=== PATIENT | male | born 1955 | race Caucasian/White ===

== ENCOUNTER → 2019-02-02 11:03 | Outpatient (CLI) | payer MEDICARE, OTHER, SELFPAY ==
--- NOTE | 2019-02-02 | DI.RAD.S_ITS ---
PROCEDURE: FL BARIUM SWALLOW INDICATIONS: Other dysphagia COMPARISON: None. FINDINGS: Function: There is mild esophageal dysmotility. No elicited gastroesophageal reflux. Morphology: Air-contrast images demonstrate normal mucosal morphology. Single contrast views show no esophageal strictures, extrinsic mass effects, or diverticula. Limited images of the stomach demonstrate normal appearance. IMPRESSION: Mild esophageal dysmotility Dictated by: Adria Mensah M.D. on 02/02/2019 at 14:05 Approved by: Adria Mensah M.D. on 02/02/2019 at 14:09
== END ==
PROVIDERS: PCP Family Medicine; Visit Provider Otolaryngology
DX: R13.19 Other dysphagia (principal); K22.4 Dyskinesia of esophagus
CPT/HCPCS: 74220

== ENCOUNTER → 2022-03-19 12:38 | Outpatient (CLI) | payer MEDICARE, OTHER, SELFPAY ==
--- NOTE | 2022-03-19 12:40 | DI.RAD.S_ITS ---
PROCEDURE: FL UPPER GI SERIES INDICATIONS: Nausea with vomiting, unspecified COMPARISON: None. FINDINGS: KUB: Preprocedural quality compliance consultant film demonstrates a normal bowel gas pattern. No suspicious abdominal calcifications. Visualized solid organ contours appear normal. Bony structures appear unremarkable. Surgical clips seen projecting over the right paraspinal region. Degenerative changes are seen in the spine. Esophagus: Esophageal mucosa is normal on air-contrast views. On single-contrast views, there is normal esophageal peristalsis. No strictures, extrinsic mass effects, or diverticula. No elicited gastroesophageal reflux. Small reducible hiatal hernia. There is normal transit of a calibrated barium tablet through the esophagus. Stomach: The stomach is normally distensible, with normal rugal fold thickness. No mucosal masses or ulcers. Pylorus and duodenal bulb appear normal in morphology. Duodenal folds are normal in thickness as well. IMPRESSION: Small reducible hiatal hernia. Upper GI study otherwise within normal limits. Dictated by: Levi Cartwright M.D. on 03/19/2022 at 15:33 Approved by: Levi Cartwright M.D. on 03/19/2022 at 15:37
== END ==
PROVIDERS: PCP Family Medicine; Referring Provider Physician Assistant; Visit Provider Physician Assistant
DX: R11.2 Nausea with vomiting, unspecified (principal); K44.9 Diaphragmatic hernia without obstruction or gangrene
CPT/HCPCS: 74240

== ENCOUNTER → 2022-03-29 07:39 | Outpatient (CLI) | payer MEDICARE, OTHER, SELFPAY ==
--- NOTE | 2022-03-29 | DI.NM.S_ITS ---
PROCEDURE: NM GASTRIC EMPTYING STUDY RADIOPHARMACEUTICAL: 1.1 mCi Tc-99m sulfur colloid in an egg sandwich. INDICATIONS: Nausea with vomiting, unspecified TECHNIQUE: A Tc-99m labeled sulfur colloid labeled egg sandwich or oatmeal was served to the patient. Anterior and posterior planar images of the abdomen were obtained at 0 minutes and 30 minutes, then at hourly intervals up to 4 hours. The patient was upright and ambulating during the interval. COMPARISON: None. FINDINGS: The stomach has normal size, morphology, and position. There is normal emptying of solid gastric contents from the stomach by visual inspection. No gastroesophageal reflux is visualized. The percentage of tracer retained at specific time points are as follows: Time point Percent gastric retention Normal range 30 minutes 66% 70% or more 1 hour 36% 30% to 90% 2 hours 15% 60% or less 3 hours 1% 30% or less IMPRESSION: Borderline rapid gastric emptying. No evidence of gastroparesis. Dictated by: Piotr Razo M.D. on 03/29/2022 at 14:29 Approved by: Piotr Razo M.D. on 03/29/2022 at 14:31
== END ==
PROVIDERS: PCP Family Medicine; Referring Provider Physician Assistant; Visit Provider Physician Assistant
DX: R11.2 Nausea with vomiting, unspecified (principal)
CPT/HCPCS: 78264; A9541

== ENCOUNTER → 2022-04-20 11:32 | Outpatient (CLI) | payer MEDICARE, OTHER, SELFPAY ==
[2022-04-20 13:00] LABS: COVID19 -Nasal RAPID Negative (Negative)
== END ==
PROVIDERS: PCP Family Medicine; Visit Provider Surgery
DX: Z20.822 Contact with and (suspected) exposure to COVID-19 (principal); Z01.812 Encounter for preprocedural laboratory examination
CPT/HCPCS: 87635; C9803

== ENCOUNTER 2022-04-21 09:52 | Day surgery (SDC) | payer MEDICARE, OTHER, SELFPAY ==
--- NOTE | 2022-04-21 | PATH_ITS ---
[facility] Accession Number: [id number] No. of containers..02 Tissue . 01 Material submitted: . PART A: duodenum - DUODENAL BIOPSIES PART B: gastrointestinal site - GASTRIC BIOPSIES . 01 Diagnosis: A. Duodenum, Biopsies: Duodenal mucosa with no diagnostic abnormality. Negative for active inflammation, features of sprue, dysplasia, or malignancy. . B. Stomach, Biopsies: Gastric body mucosa with no diagnostic abnormality. No evidence of Helicobacter organisms on H/E stain. Negative for intestinal metaplasia. Negative for dysplasia or malignancy. MRV 04/23/2022 1849 Local . 01 Electronically signed: . Cliff Whyte MD, PhD, Pathologist NPI- [id number] . 01 Gross description: . Part A: DUODENAL BIOPSIES: Received in formalin are 2 fragment(s) of vasquez, soft tissue measuring 0.2 x 0.2 x 0.1 cm to 0.2 x 0.1 x 0.1 cm submitted entirely in 1 cassette(s) Part B: GASTRIC BIOPSIES: Received in formalin is 1 fragment(s) of vasquez, soft tissue measuring 0.3 x 0.2 x 0.1 cm submitted entirely in 1 cassette(s) /CPE 04/22/2022 0753 Local . 01 Pathologist provided ICD-10: R19.4, R11.2 . 01 CPT . 706250, 100038 Specimen Comment: A courtesy copy of this report has been sent to [phone], [phone] Specimen Comment: [id number] Performed at: 01 [facility] [address] [place] [address], [place], [place] [id number] MD Juan Savage MD Phone: [phone]
[2022-04-21 10:07] VITALS: BP 112/68; PULSE 65; RESP 18; TEMP 36.6; O2SAT 96; BMI 24.7
--- NOTE | 2022-04-21 10:47 | PM.HP.1 ---
History of Present Illness History of Present Illness Date Patient Seen: 04/21/22 Chief complaint: DX COLONOSCOPY & EGD W/POSS BX Narrative: Longstanding nausea with occasional vomiting in the morning. Rule out Helicobacter. Rule out celiac. Personal history of colon polyps Patient History Family & Social History Social History: household members spouse Tobacco & Substance use: Tobacco type cannabis/marijuana Smoking Status Current every day smoker alcohol intake former Substance Use Type does not use Meds Home Medications and Allergies Home Medications Medication Instructions Recorded Confirmed Type Metamucil 04/21/22 History Allergies Allergy/AdvReac Type Severity Reaction Status Date / Time amoxicillin Allergy Unknown Rash Verified 04/21/22 10:27 HERNAN Allergy Unknown RASH, Uncoded 10/12/17 12:17 SWELLING Exam Vital Signs (past 8 hours): - 04/21/22 10:07 Temperature 97.8 F Pulse Rate 65 Respiratory Rate 18 Blood Pressure 112/68 Pulse Oximetry 96 Oxygen Delivery Method Room Air Oxygen Delivery Method Room Air Narrative Exam Narrative: Oropharynx free of lesions Chest clear to auscultation percussion Cardiac exam reveals no S3 or murmur Assessment & Plan Assessment & Plan narrative: Nausea and vomiting rule out underlying gastritis. Risks benefits and alternatives have been explained. Duodenal biopsies will be taken. Personal history of colon polyps need for follow-up colonoscopy. Risks benefits and alternatives have been explained. Time Spent With Patient Critical Care time: I spent a total of [] minutes of critical care time on this patient's care today; this time is exclusive of procedural time.
--- NOTE | 2022-04-21 10:55 | PM.OP.EC ---
Operative Date/Time/Diagnoses Date of procedure: 04/21/22 Pre-op diagnosis: See indication and findings Procedure & Clinicians Study performed: Colonoscopy and EGD Indications: Nausea and vomiting particularly in the morning rule out Helicobacter rule out celiac Personal history of colon polyps rule out recurrent colon polyps Surgeon: Bud Wilson Procedure Notes Procedure in detail: After informed consent was obtained the patient was placed in the left lateral decubitus position. The video upper scope placed into the oropharynx and with the patient's help swelled into the esophagus. The esophagus stomach duodenum were carefully examined. On withdrawal, retroflexed view the GE junction was performed. The scope was removed. The patient tolerated procedure well. The patient was then turned in the colonoscope substituted. This was introduced in the rectum slowly advanced cecum. Preparation was good. On slow withdrawal mucosa was carefully examined. The scope was removed. The patient tolerated procedure well. Blood loss none Complications none Sedation propofol Findings EGD 1. Normal esophagus 2. Streaky gastric erythema biopsies taken to rule out Helicobacter 3. Normal duodenal bulb and sweep biopsies taken to rule out celiac Colonoscopy 1. Mild sigmoid diverticulosis 2. Otherwise negative colonoscopy to cecum Patient should have follow-up colonoscopy in 7+ years. We will be in touch regarding his biopsies and otherwise he should be in touch with JOSE Saleh
[2022-04-21 11:34] VITALS: BP 128/81; PULSE 67; RESP 24; TEMP 36.1; O2SAT 99
[2022-04-21 11:38] VITALS: BP 124/80; PULSE 92; RESP 20; O2SAT 98
[2022-04-21] MEDS: SODIUM CHLORIDE 0.9% 1,000 ML 84 ML IV (11:40)
[2022-04-21 11:44] VITALS: BP 155/82; PULSE 64; RESP 19; O2SAT 99
[2022-04-21 11:48] VITALS: BP 142/79; PULSE 64; RESP 11; TEMP 36.3; O2SAT 100
[2022-04-21 12:09] VITALS: BP 136/81; PULSE 70; RESP 16; TEMP 36.9; O2SAT 98
== END 2022-04-21 12:10 | disposition home or self-care (01) ==
PROVIDERS: PCP Family Medicine; Referring Provider Internal Medicine Gastroenterology; Visit Provider Internal Medicine Gastroenterology
PROC: 0DJ08ZZ Inspection of Upper Intestinal Tract, Via Natural or Artificial Opening Endoscopic (ICD-10-PCS; CPT 43235; principal; 2022-04-21 11:00)
PROC: 0DJD8ZZ Inspection of Lower Intestinal Tract, Via Natural or Artificial Opening Endoscopic (ICD-10-PCS; CPT 45378; 2022-04-21 11:00)
DX: R10.31 Right lower quadrant pain (principal); R19.4 Change in bowel habit; R11.2 Nausea with vomiting, unspecified; Z86.010 Personal history of colon polyps; K57.30 Diverticulosis of large intestine without perforation or abscess without bleeding
CPT/HCPCS: 43239; 45378; J2704

== ENCOUNTER → 2022-09-17 09:10 | Outpatient (CLI) | payer MEDICARE, OTHER, SELFPAY ==
--- NOTE | 2022-09-17 09:13 | DI.CT.S_ITS ---
PROCEDURE: CT SHOULDER RIGHT WITH CON INDICATIONS: EVAL FOR CUFF TEAR TECHNIQUE: After the intra-articular administration of 12 mL of dilute non-ionic contrast, 1-1.5 mm thick sections acquired from the acromioclavicular joint to the inferior scapula, with coronal and sagittal reformatting. COMPARISON: [facility] Outside Film, MR, MR SHOULDER RIGHT WITHOUT CONTRAST, 12/12/2018, 14:32. [facility] [place], CR, XR SHOULDER 2+ VIEWS RIGHT, 09/07/2022, 11:00. [facility] [place], RF, [place] SHOULDER INJECTION MR/CT RT, 09/17/2022, 9:24. FINDINGS: Image quality: Expected metal streak artifact related to patient's shoulder arthroplasty compromises evaluation of adjacent structures. Rotator cuff: No extravasation of glenohumeral contrast material is seen into the subacromial/subdeltoid bursa. Contrast material within the subscapularis muscle is most likely related to the arthrogram injection. There is moderate atrophy and grade 3 fatty infiltration of the subscapularis muscle superiorly, which may be related to the prior surgery or possibly chronic tendon tearing. The remaining rotator cuff muscles are normal in bulk. Bones: A shoulder hemiarthroplasty is present with associated metal streak artifact that obscures adjacent structures. Hardware is in expected position without signs of loosening. Mild chronic osseous remodeling is seen within the glenoid. Mild degenerative changes are seen at the acromioclavicular joint. The included right-sided ribs are intact. Soft tissues: A 0.9 cm nonspecific calcification is seen along the anterior humerus near the pectoralis major insertion, which may represent heterotopic calcification or possibly calcific tendinopathy. Biceps long head tendon is not well seen. Mild posterior dependent atelectasis in the included lungs. Mild coronary artery calcifications are present. IMPRESSION: 1. Postsurgical changes from right shoulder hemiarthroplasty with expected metal streak artifact that obscures adjacent structures. 2. No extravasation of glenohumeral contrast material into the subacromial/subdeltoid bursa to suggest a full-thickness supraspinatus or infraspinatus tendon tear. 3. Chronic atrophy and grade 3 fatty infiltration of the superior portion of the subscapularis muscle may be related to postsurgical changes or chronic tendon tearing. The distal subscapularis tendon insertion is not well seen. 4. Mild acromioclavicular osteoarthrosis. Approved by: Levi Cartwright M.D. on 09/17/2022 at 11:52
--- NOTE | 2022-09-17 09:15 | DI.RAD.S_ITS ---
PROCEDURE: FL SHOULDER INJECTION MR/CT RT INDICATIONS: EVAL FOR CUFF TEAR COMPARISON: [facility], CT, CT SHOULDER RIGHT WITH CON, 09/17/2022, 9:45. TECHNIQUE: The indications, alternatives, benefits, risks, and complications of the procedure were explained to the patient. Written informed consent was obtained and placed in the chart. The shoulder was examined fluoroscopically and a site for needle placement chosen for entry into the glenohumeral joint from an anterior approach. The skin was prepped and draped in a sterile fashion, and 1% lidocaine infiltrated from skin down to joint capsule. A spinal needle was inserted into the glenohumeral joint, and a small amount of iodinated contrast media injected to confirm intra-articular placement of the needle tip. This was followed by approximately 12 mL of iodinated contrast. The needle was removed and a dressing was applied. The patient was given postprocedural instructions and sent to the CT suite for imaging. FINDINGS: A single fluoroscopic spot image demonstrates intra-articular location of injected iodinated contrast. IMPRESSION: Successful fluoroscopically guided administration of iodinated contrast solution into the shoulder joint for CT arthrogram. Dictated by: Kassidy Hutton M.D. on 09/17/2022 at 16:29 Approved by: Kassidy Hutton M.D. on 09/17/2022 at 16:29
== END ==
PROVIDERS: PCP Family Medicine; Referring Provider Orthopaedic Surgery; Visit Provider Orthopaedic Surgery
DX: M19.011 Primary osteoarthritis, right shoulder (principal); Z96.611 Presence of right artificial shoulder joint
CPT/HCPCS: 23350; 73201; 77002